=== PATIENT | female | born 1995 | race Caucasian/White ===

== ENCOUNTER 2017-04-18 10:13 | Emergency (ER) | payer SELFPAY ==
[~2017-04-18] VITALS: Ht 152.4 cm; Wt 49.1 kg
[~2017-04-18 10:13] MED LIST: ADDERALL XR 2020 MG PO; ADDERALL30 MG PO; ATARAX10 MG PO; CLEOCIN150 MG PO; CLEOCIN300 MG PO; CLINDAMYCIN HC300 MG PO; DEPO-PROVER150 MG/ML IM; FLEXERIL10 MG PO; GABAPENTIN; HYDROCODON-ACE1 EAC7 PO; KEFLEX500 MG PO; LITHIUM CARBON300 M2 PO; LORTAB 5-325 M1 EACH PO; MACROBID100 MG PO; MILK OF MAGN PO; MOTRIN IB200 MG PO; MOTRIN800 MG PO; Motrin PO; NAPROSYN500 MG PO; NAPROXEN500 MG PO; NORCO 5/3251 TABLET PO; PERCOCET 5/31 TABLET PO; PRENATAL TABLE1 EAC3 PO; PYRIDIUM200 MG PO; QUETIAPINE FUM300 MG PO; ROXICODONE5 MG PO; Roxicet,Percocet 5/3 PO; SEROQUEL100 MG PO; TRAZODONE HCL100 MG PO; TYLENOL ARTHRI650 MG PO; TYLENOL REGULA325 MG PO; VICODIN,LORT1 TABLET PO; ZOFRAN ODT8 MG PO; ZOLOFT50 MG PO; Zoloft PO
[2017-04-18 11:19] LABS: HEMATOCRIT 45.2 % (36.0-46.0); MCH 31.3 PG (29.0-34.0); MCHC 34.5 G/DL (30.0-36.0); MCV 90.6 FL (83-99); MEAN PLAT.VOLUME 10.2 uM^3 (9.5-12.4); PLATELET COUNT 119 K/uL (156-360); RBC DIS.WIDTH-CV 13.3 % (11.8-14.6); RBC DIS.WIDTH-SD 44.3 % (39-53); RED BLOOD COUNT 4.99 M/uL (3.80-5.20); WHITE BLOOD COUNT 12.3 K/uL (4.1-10.2)
[2017-04-18 11:27] LABS: CHLORIDE 107 mEq/L (99-109); POTASSIUM 4.3 mEq/L (3.7-5.4); SODIUM 141 mEq/L (136-147)
[2017-04-18 11:29] LABS: GLUCOSE 91 mg/dL (70-99)
[2017-04-18 11:31] LABS: ANION GAP 14 MEQ/L (2-14)
[2017-04-18 11:33] LABS: GFR ESTIMATE (CALCULATED) > 59 mL/min/
[2017-04-18 11:34] LABS: UREA NITROGEN (BUN) 5 mg/dL (9-23)
[2017-04-18 12:47] LABS: ADD MIUA? YES; BILIRUBIN NEGATIVE; BLOOD SMALL; COLOR YELLOW ((YELLOW)); GLUCOSE (STRIP) NEGATIVE; KETONES NEGATIVE; LEUKOCYTES MODERATE; NITRITE NEGATIVE; PROTEIN (STRIP) 100; SPECIFIC GRAVITY 1.013 (1.000-1.030)
[2017-04-18 12:51] LABS: BACTERIA 2+ /HPF; EPITHELIAL CELLS 1+ /HPF; MUCUS TRACE /LPF; RED BLOOD CELLS 0-5 /HPF (0-5); UCUL ADDED? YES
[2017-04-18 12:55] LABS: AMPHETAMINE PRESUMPTIVE POSITIVE (500 ng/mL); BARBITURATES NEGATIVE (200 ng/mL); BENZODIAZEPINES NEGATIVE (150 ng/mL); COCAINE NEGATIVE (150 ng/mL); INTERNAL CONTROLS VALID? YES; METHADONE PRESUMPTIVE POSITIVE (200 ng/mL); METHAMPHETAMINE NEGATIVE (500 ng/mL); OPIATES (MORPHINE) NEGATIVE (100 ng/mL); OXYCODONE NEGATIVE (100 ng/mL); PHENCYCLIDINE NEGATIVE (25 ng/mL); PROPOXYPHENE NEGATIVE (300 ng/mL); THC CANNABINOIDS NEGATIVE (50 ng/mL); TRICYCLIC ANTIDEPRESSANTS NEGATIVE (300 ng/mL)
[2017-04-18 12:56] LABS: ADD MEDTOX COMMENT Y
[2017-04-18 14:31] VITALS: BP 130/85
== END 2017-04-18 14:33 | disposition home or self-care (01) ==
LOC: EME 10:13
PROVIDERS: Emergency Medicine
DX: R56.9 Unspecified convulsions (principal); F90.9 Attention-deficit hyperactivity disorder, unspecified type; F11.20 Opioid dependence, uncomplicated; F17.200 Nicotine dependence, unspecified, uncomplicated
CPT/HCPCS: 80048; 81003; 84999; 85027; 87086; 99281; 99283

== ENCOUNTER 2017-07-21 14:21 | Emergency (ER) | payer OTHER ==
[~2017-07-21] VITALS: Ht 152.4 cm; Wt 60.1 kg
[2017-07-21] MEDS ORDERED: ATIVAN1 MG PO (14:46)
[2017-07-21 18:01] VITALS: BP 116/78
== END 2017-07-21 18:01 | disposition home or self-care (01) ==
LOC: EME 14:21
DX: R56.9 Unspecified convulsions (principal); F17.200 Nicotine dependence, unspecified, uncomplicated; F31.9 Bipolar disorder, unspecified; F90.9 Attention-deficit hyperactivity disorder, unspecified type; Z88.5 Allergy status to narcotic agent; Z88.2 Allergy status to sulfonamides; Z88.8 Allergy status to other drugs, medicaments and biological substances
CPT/HCPCS: 99281; 99284

== ENCOUNTER 2017-08-02 12:10 | Emergency (ER) | payer OTHER ==
[~2017-08-02] VITALS: Ht 152.4 cm; Wt 51.0 kg
[~2017-08-02 12:10] MED LIST changes: +ATIVAN1 MG PO
[2017-08-02 12:51] LABS: HEMOGLOBIN 15.2 G/DL (11.9-15.5); MCH 32.3 PG (29.0-34.0); MCHC 35.3 G/DL (30.0-36.0); MCV 91.5 FL (83-99); PLATELET COUNT 235 K/uL (156-360); RBC DIS.WIDTH-CV 11.9 % (11.8-14.6); RBC DIS.WIDTH-SD 40.2 % (39-53); WHITE BLOOD COUNT 8.9 K/uL (4.1-10.2)
[2017-08-02 12:59] LABS: CHLORIDE 104 mEq/L (99-109); POTASSIUM 4.2 mEq/L (3.7-5.4); SODIUM 138 mEq/L (136-147)
[2017-08-02 13:00] LABS: GLUCOSE 83 mg/dL (70-99)
[2017-08-02 13:04] LABS: CREATININE 0.9 mg/dL (0.6-1.3); GFR ESTIMATE (CALCULATED) > 59 mL/min/
[2017-08-02 13:05] LABS: UREA NITROGEN (BUN) 8 mg/dL (9-23)
[2017-08-02 13:12] LABS: QUANTITATIVE HCG < 4.0 MIU/ML
[2017-08-02 14:09] LABS: APPEARANCE SL.HAZY ((CLEAR)); BILIRUBIN NEGATIVE; BLOOD SMALL; COLOR YELLOW ((YELLOW)); GLUCOSE (STRIP) NEGATIVE; KETONES NEGATIVE; LEUKOCYTES MODERATE; NITRITE NEGATIVE; PROTEIN (STRIP) 30; SPECIFIC GRAVITY 1.015 (1.000-1.030)
[2017-08-02 14:20] LABS: AMPHETAMINE NEGATIVE (500 ng/mL); BARBITURATES NEGATIVE (200 ng/mL); BENZODIAZEPINES NEGATIVE (150 ng/mL); BUPRENORPHINE NEGATIVE (10 ng/mL); COCAINE NEGATIVE (150 ng/mL); METHADONE PRESUMPTIVE POSITIVE (200 ng/mL); METHAMPHETAMINE NEGATIVE (500 ng/mL); OPIATES (MORPHINE) NEGATIVE (100 ng/mL); OXYCODONE NEGATIVE (100 ng/mL); PHENCYCLIDINE NEGATIVE (25 ng/mL); PROPOXYPHENE NEGATIVE (300 ng/mL); THC CANNABINOIDS NEGATIVE (50 ng/mL); TRICYCLIC ANTIDEPRESSANTS NEGATIVE (300 ng/mL)
[2017-08-02 14:22] LABS: EPITHELIAL CELLS 1+ /HPF
[2017-08-02 14:24] LABS: BACTERIA 2+ /HPF; MUCUS NONE SEEN /LPF; RED BLOOD CELLS 0-5 /HPF (0-5)
[2017-08-02] MEDS ORDERED: KEFLEX500 MG PO (14:38)
[2017-08-02 14:49] VITALS: BP 103/52
== END 2017-08-02 14:50 | disposition home or self-care (01) ==
LOC: EME 12:10
PROVIDERS: Nurse Practitioner Family
DX: R56.9 Unspecified convulsions (principal); N39.0 Urinary tract infection, site not specified; F90.9 Attention-deficit hyperactivity disorder, unspecified type; F32.9 Major depressive disorder, single episode, unspecified; F17.200 Nicotine dependence, unspecified, uncomplicated; Z79.891 Long term (current) use of opiate analgesic; Z91.19 Patient's noncompliance with other medical treatment and regimen; Z88.6 Allergy status to analgesic agent; Z88.5 Allergy status to narcotic agent; Z88.2 Allergy status to sulfonamides
CPT/HCPCS: 70450; 80048; 81003; 84702; 85027; 99281; 99285

== ENCOUNTER 2018-03-25 23:02 | Observation (INO) | payer OTHER ==
[~2018-03-25] VITALS: Ht 167.6 cm; Wt 70.9 kg
[2018-03-25 23:46] LABS: HEMATOCRIT 42.5 % (36.0-46.0); HEMOGLOBIN 14.5 G/DL (11.9-15.5); MCH 31.3 PG (29.0-34.0); MCHC 34.1 G/DL (30.0-36.0); MCV 91.8 FL (83-99); PLATELET COUNT 400 K/uL (156-360); RBC DIS.WIDTH-CV 13.4 % (11.8-14.6); RBC DIS.WIDTH-SD 45.3 % (39-53); RED BLOOD COUNT 4.63 M/uL (3.80-5.20); WHITE BLOOD COUNT 28.1 K/uL (4.1-10.2)
[2018-03-25 23:57] LABS: ALBUMIN 4.6 g/dL (3.2-4.8); CHLORIDE 103 mEq/L (99-109); POTASSIUM 4.4 mEq/L (3.7-5.4); SODIUM 135 mEq/L (136-147)
[2018-03-25 23:59] LABS: GLUCOSE 145 mg/dL (70-99); TOTAL PROTEIN 7.8 g/dL (6.4-8.3)
[2018-03-26 00:01] LABS: TOTAL BILIRUBIN 0.4 mg/dL (0.0-1.0)
[2018-03-26 00:02] LABS: SERUM ETHYL ALCOHOL < 10 mg/dL
[2018-03-26 00:03] LABS: ALKALINE PHOSPHATASE 110 IU/L (3-129); GFR ESTIMATE (CALCULATED) > 59 mL/min/
[2018-03-26 00:04] LABS: AST (GOT) 37 IU/L (2-34); UREA NITROGEN (BUN) 12 mg/dL (9-23)
[2018-03-26 00:06] LABS: ALT (GPT) 33 IU/L (3-49)
[2018-03-26 00:13] LABS: QUANTITATIVE HCG < 4.0 MIU/ML
[2018-03-26 01:59] LABS: APPEARANCE CLEAR ((CLEAR)); BILIRUBIN NEGATIVE; BLOOD SMALL; COLOR STRAW ((YELLOW)); GLUCOSE (STRIP) NEGATIVE; KETONES NEGATIVE; LEUKOCYTES NEGATIVE; NITRITE NEGATIVE; PROTEIN (STRIP) NEGATIVE; SPECIFIC GRAVITY 1.026 (1.000-1.030); UROBILINOGEN 0.2 MG/DL (0.2-1.0)
[2018-03-26 02:08] LABS: BACTERIA RARE /HPF; EPITHELIAL CELLS RARE /HPF; MUCUS TRACE /LPF; RED BLOOD CELLS 0-5 /HPF (0-5); UCUL ADDED? NO; WHITE BLOOD CELLS 0-5 /HPF (0-5)
[2018-03-26 02:10] LABS: AMPHETAMINE NEGATIVE (500 ng/mL); BARBITURATES NEGATIVE (200 ng/mL); BENZODIAZEPINES NEGATIVE (150 ng/mL); BUPRENORPHINE NEGATIVE (10 ng/mL); COCAINE NEGATIVE (150 ng/mL); METHADONE PRESUMPTIVE POSITIVE (200 ng/mL); METHAMPHETAMINE NEGATIVE (500 ng/mL); OPIATES (MORPHINE) PRESUMPTIVE POSITIVE (100 ng/mL); OXYCODONE NEGATIVE (100 ng/mL); PHENCYCLIDINE NEGATIVE (25 ng/mL); PROPOXYPHENE NEGATIVE (300 ng/mL); THC CANNABINOIDS PRESUMPTIVE POSITIVE (50 ng/mL); TRICYCLIC ANTIDEPRESSANTS NEGATIVE (300 ng/mL)
[2018-03-26 02:34] LABS: PTT 24.9 SEC (25-37)
[2018-03-26 02:37] LABS: LIPASE 20 U/L (1.0-51.0)
[2018-03-26 08:41] LABS: BASOPHIL (%) 0.1 % (0-1); EOSINOPHIL (%) 0.4 % (0-5); EOSINOPHIL COUNT 0.1 K/uL (0-0.3); HEMATOCRIT 42.8 % (36.0-46.0); HEMOGLOBIN 14.5 G/DL (11.9-15.5); IMMATURE GRANULOCYTE (%) 0.5 % (0.0-0.7); LYMPHOCYTE COUNT 1.9 K/uL (1.0-2.8); MCH 31.7 PG (29.0-34.0); MCHC 33.9 G/DL (30.0-36.0); MCV 93.4 FL (83-99); MONOCYTE (%) 1.2 % (3-12); MONOCYTE COUNT 0.3 K/uL (0-0.8); NEUTROPHIL (%) 88.8 % (45-76); NEUTROPHIL COUNT 18.8 K/uL (1.8-6.4); PLATELET COUNT 303 K/uL (156-360); RBC DIS.WIDTH-CV 13.7 % (11.8-14.6); RBC DIS.WIDTH-SD 46.8 % (39-53); RED BLOOD COUNT 4.58 M/uL (3.80-5.20); WHITE BLOOD COUNT 21.2 K/uL (4.1-10.2)
[2018-03-26 08:51] LABS: CHLORIDE 108 mEq/L (99-109); POTASSIUM 4.6 mEq/L (3.7-5.4); SODIUM 137 mEq/L (136-147)
[2018-03-26 08:52] LABS: GLUCOSE 119 mg/dL (70-99)
[2018-03-26 08:56] LABS: CREATININE 0.9 mg/dL (0.6-1.3); GFR ESTIMATE (CALCULATED) > 59 mL/min/
[2018-03-26 08:57] LABS: UREA NITROGEN (BUN) 10 mg/dL (9-23)
[2018-03-26] MEDS ORDERED: LEVETIRACETAM500 MG PO (11:32)
[2018-03-26 12:20] VITALS: BP 127/71
== END 2018-03-26 11:38 | disposition left against medical advice (07) ==
LOC: EME 23:02 → EDOF 03-26 05:37 → ENRESERV 03-26 05:38 → EDOF 03-26 11:38 → CANRESERV 03-26 11:50 → ENRESERV 03-26 11:50
PROVIDERS: Emergency Medicine; Internal Medicine
DX: G40.909 Epilepsy, unspecified, not intractable, without status epilepticus (principal); R41.82 Altered mental status, unspecified; D72.829 Elevated white blood cell count, unspecified; E87.2 Acidosis; F11.20 Opioid dependence, uncomplicated; F12.90 Cannabis use, unspecified, uncomplicated; F60.3 Borderline personality disorder; F32.9 Major depressive disorder, single episode, unspecified; F43.20 Adjustment disorder, unspecified; Z88.5 Allergy status to narcotic agent; Z88.6 Allergy status to analgesic agent; Z91.018 Allergy to other foods
CPT/HCPCS: 70450; 70551; 71045; 74177; 80048; 80053; 81003; 83605; 83690; 84702; 84999; 85025; 85027; 85610; 85730; 87040; 95819; 99281; 99285; G0378; G0480; J1100; J1630; J2270; J2405; J2543; J3370; J7030